=== PATIENT | female | born 1990 | race Caucasian/White ===

== ENCOUNTER 2017-06-08 20:46 | Emergency (ER) | payer BC ==
[2017-06-08 20:57] VITALS: RESP 16; O2SAT 99
[2017-06-08] MEDS ORDERED: Lactated Ringer's 1,000 ML IV STA (21:19)
[2017-06-08] MEDS ORDERED: Dextrose 5%/Lactated Ringer's 1,000 ML IV SCH (21:30)
--- NOTE | 2017-06-08 21:46 | ED PDOC ---
HPI:Nausea, Vomiting, Diarrhea Time Seen by Provider: 06/08/17 21:04 Chief Complaint (Nursing): GI Problem Chief Complaint (Provider): Dizziness and Vomiting History Per: Patient History/Exam Limitations: no limitations Onset/Duration Of Symptoms: Days Current Symptoms Are (Timing): Still Present Associated Symptoms: Fever, Nausea, Vomiting Additional Complaint(s): 26 year old female presents to the emergency complaining of dizziness and vomiting which began around 3am last night. Patient reports that she has had over 10 episodes of non bloody, non bilious vomit as well as feeling lightheaded. She states that when she stand up she feels as though she is going to fall down and pass out. Patient also noted a subjective fever around 9pm last night as well as early this morning. She states that she took tylenol for relief of the fever. No known sick contacts, denies abdominal pain, new food. Of note: patient also reports that for the past few weeks she has had a mild cough, runny nose and a sore throat. NO REGULAR PMD Past Medical History Reviewed: Historical Data, Nursing Documentation, Vital Signs Vital Signs: Last Vital Signs Temp 98.8 F 06/08/17 20:54 Pulse 113 H 06/08/17 20:54 Resp 16 06/08/17 20:54 BP 110/63 06/08/17 20:54 Pulse Ox 99 06/08/17 20:54 - Medical History PMH: No Chronic Diseases - Surgical History Surgical History: Tonsillectomy - Family History Family History: States: Unknown Family Hx - Home Medications Home Medications: Ambulatory Orders Medication Instructions Recorded Ondansetron ODT [Zofran ODT] 1 odt PO Q6 PRN #20 odt 06/08/17 - Allergies Allergies/Adverse Reactions: Allergies Allergy/AdvReac Type Severity Reaction Status Date / Time No Known Allergies Allergy Verified 06/08/17 20:56 Review of Systems ROS Statement: Except As Marked, All Systems Reviewed And Found Negative Constitutional: Positive for: Fever (subjective) Cardiovascular: Positive for: Light Headedness Gastrointestinal: Positive for: Vomiting. Negative for: Abdominal Pain Neurological: Positive for: Dizziness Physical Exam - Physical Exam Appears: Positive for: Non-toxic, No Acute Distress (Tired appearing) Skin: Positive for: Warm, Dry, Pallor ENT: Positive for: Pharynx Is (clear), Other (tacky mucous membranes) Neck: Positive for: Painless ROM, Supple Cardiovascular/Chest: Positive for: Regular Rate, Rhythm. Negative for: Murmur Respiratory: Positive for: Normal Breath Sounds. Negative for: Wheezing Gastrointestinal/Abdominal: Positive for: Soft. Negative for: Tenderness, Mass , Distended, Guarding, Rebound Back: Positive for: Normal Inspection. Negative for: Muscle Spasm Extremity: Positive for: Normal ROM. Negative for: Deformity Lymphatic: Negative for: Adenopathy Neurologic/Psych: Positive for: Alert. Negative for: Motor/Sensory Deficits - Laboratory Results Result Diagrams: 06/08/17 22:10 06/08/17 22:10 - ECG O2 Sat by Pulse Oximetry: 99 (RA) Pulse Ox Interpretation: Normal Medical Decision Making Medical Decision Makin Initial Impression 26 year old female presenting with vomiting Differential: Acute Gastritis, Gastroenteritis, Dehydration, Electrolyte Abnormality, Viral Illness, Pancreatitis Initial Plan: * VBG Shock Panel * CMP * Lipase * magnesium * Phosphorous * Upreg * Udip * CBC * Dextrose 1000ml IV 100 mls/hr * Lactated Ringers 1000ml IV 1000mls/hr * Pepcid 20mg IVP * Zofran 4 mg PO * Accucheck * Influenza A B * Reevaluation 2329 No emergently significant lab abnormalities On reeval pt feels better and tolerating PO. Stable for dc with outpatient follow up. Documented by Esther Quiroga acting as a scribe for Cristina Garcias MD. All medical record entries made by the Scribe were at my direction and personally dictated by me. I have reviewed the chart and agree that the record accurately reflects my personal performance of the history, physical exam, medical decision making, and the department course for this patient. I have also personally directed, reviewed, and agree with the discharge instructions and disposition. Disposition - Clinical Impression Clinical Impression: Vomiting, Dehydration - Disposition Referrals: [facility] [Outside] ([facility] WILL CALL YOU SATURDAY FOR FOLLOWUP. YOU CAN ALSO FOLLOW UP WITH YOUR OWN PHYSICIAN IN 2-3 DAYS TO SEE HOW YOU ARE DOING) Disposition: Routine/Home Disposition Time: 23:00 Condition: IMPROVED Prescriptions: Ondansetron ODT [Zofran ODT] 1 odt PO Q6 PRN #20 odt PRN Reason: Nausea/Vomiting Instructions: Dehydration, Adult (DC), Nausea and Vomiting, Adult Forms: [facility] ([place]ian)
[2017-06-08 22:10] LABS: VENOUS BLOOD GAS BASE EXCESS -1.5 mmol/L (0.0-2.0); VENOUS BLOOD GAS PCO2 41 mmHg (40-60); VENOUS BLOOD GAS PO2 26 mm/Hg (30-55); VENOUS BLOOD PH 7.37 (7.32-7.43)
[2017-06-08 22:26] LABS: BASO % 0.2 % (0.0-2.0); EOS % 0.1 % (0.0-4.0); HEMOGLOBIN 12.5 g/dL (12.0-16.0); LYMPH # 0.5 K/uL (1.0-4.3); LYMPH % 6.2 % (20.0-40.0); MEAN CELL VOLUME 82.7 fl (81.0-99.0); MEAN CORPUSCULAR HEMOGLOBIN 28.2 pg (27.0-31.0); MEAN CORPUSCULAR HGB CONC 34.1 g/dL (33.0-37.0); MEAN PLATELET VOLUME 8.7 fl (7.2-11.7); MONO # 0.3 K/uL (0.0-0.8); MONO % 4.1 % (0.0-10.0); NEUT # 7.3 K/uL (1.8-7.0); NEUT % 89.4 % (50.0-75.0); PLATELET COUNT 225 K/uL (130-400); RBC 4.44 Mil/uL (3.80-5.20); RED CELL DISTRIBUTION WIDTH 13.7 % (11.5-14.5); WHITE BLOOD COUNT 8.2 K/uL (4.8-10.8)
[2017-06-08 22:31] LABS: ALB/GLOB RATIO 1.4 (1.0-2.1); ALBUMIN 4.5 g/dL (3.5-5.0); ALT/SGPT 35 U/L (9-52); AST/SGOT 23 U/L (14-36); BLOOD UREA NITROGEN 17 mg/dl (7-17); CALCIUM 9.4 mg/dL (8.4-10.2); GFR AFRICAN-AMERICAN > 60; GFR NON-AFRICAN AMERICAN > 60; LIPASE 24 U/L (23-300)
[2017-06-08 23:20] LABS: BANDS 1 % (0-2); BASOPHIL 1 % (0-2); EOSINOPHIL 1 % (0-7); LYMPHOCYTE 13 % (20-50); MONOCYTE 2 % (0-10); NEUTROPHIL 82 % (42-75); PLATELET ESTIMATE NORMAL (NORMAL); TOTAL CELLS COUNTED 100
[2017-06-09 00:15] VITALS: BP 120/72; PULSE 92; TEMP 98.4
== END 2017-06-09 00:14 | disposition home or self-care (01) ==
LOC: H.ER 20:46
DX: E86.0 Dehydration (principal); R11.10 Vomiting, unspecified
CPT/HCPCS: 80053; 82803; 83690; 83735; 84100; 85025; 87804; 96374; 99282; J7120